=== PATIENT | female | born 1940 | race Caucasian/White ===

== ENCOUNTER → 2016-04-07 | Outpatient (CLI) | payer OTHER ==
--- NOTE | 2016-04-08 08:38 | MR ---
MRI of the Left Knee Clinical Indications: Left knee pain. Technique: Fat-suppressed, fast T2-weighted images were acquired axially, sagittally, and coronally. T1-weighted sagittal images were obtained. Findings: Medial compartment: There is diffuse articular cartilage loss throughout the medial compartment, grad e 2 severity. Associated free edge fraying and maceration of the medial meniscus of the posterior med ial corner, without linear tear. Lateral compartment: More severe grade 3 chondral loss involves the weightbearing and posterior aspec ts of the lateral tibial plateau, with subchondral bone marrow edema. There is mild chondral thinning diffusely throughout the lateral femoral condyle. Degenerative maceration and tear anterior horn lat eral meniscus, with undersurface irregularity and fraying. Disease extends into the anterior aspect o f the body. The posterior horn is intact with minimal free edge fraying. Patellofemoral compartment: Diffuse grade 2 chondral thinning medial patellar facet, without focal de fect. Anterior and posterior cruciate ligaments are intact. Medial and lateral collateral ligaments are int act. Distal quadriceps and patellar tendons are intact. There is a moderate knee joint effusion with a moderate size retropopliteal cyst, with evidence of ru pture and fluid tracking inferiorly along the medial head of the gastrocnemius. IMPRESSION: 1. Articular cartilage disease in all 3 compartments, most severe within the lateral compartment. Ass ociated degenerative tear anterior horn lateral meniscus. 2. Knee joint effusion with ruptured retropopliteal cyst.
== END ==
LOC: FIMAGING 15:00
PROVIDERS: ATTEND Physician Assistant
DX: M25.562 Pain in left knee (principal); M24.10 Other articular cartilage disorders, unspecified site; M23.242 Derangement of anterior horn of lateral meniscus due to old tear or injury, left knee; M25.462 Effusion, left knee

== ENCOUNTER → 2016-09-11 | Outpatient (CLI) | payer OTHER | LOC: FIMAGING 13:43 | PROVIDERS: ATTEND Orthopaedic Surgery Orthopaedic Surgery of the Spine | DX: M25.552 Pain in left hip (principal) ==

== ENCOUNTER 2016-09-13 08:15 | Inpatient (IN) | payer OTHER ==
[2016-12-11] MEDS ORDERED: ROPIVACAINE 0.2% 80 MG, EPINEPHrine 0.2 MG, KETOROLAC TROMETHAMINE 30 MG in BAG 0 ML IU ONE (06:00)
[2016-12-11] MEDS ORDERED: TRANEXAMIC ACID 3,000 MG in NS 50 ML IRR ONE (06:00)
[2016-12-11] MEDS ORDERED: DEXAMETHASONE 4 MG/ML VIAL IVP ONE (11:38)
[2016-12-11] MEDS ORDERED: ACETAMINOPHEN 325 MG TAB PO ONE (11:38)
[2016-12-11] MEDS ORDERED: FAMOTIDINE 20 MG TAB PO ONE (11:38)
[2016-12-11] MEDS ORDERED: ceFAZolin 2 GM/DEXTROSE 100 ML IV ONE (11:38)
[2016-12-11] MEDS ORDERED: LR 1,000 ML IV ONE (11:52)
[2016-12-11] MEDS ORDERED: TRANEXAMIC ACID 3,000 MG/50 ML BAG IRR ONE (12:28)
[2016-12-11] MEDS ORDERED: VANCOMYCIN 1 GM VIAL ONE (12:29)
[2016-12-11] MEDS ORDERED: MIDAZOLAM 2 MG/2 ML VIAL IVP ONE (13:41)
--- NOTE | 2016-12-11 13:41 | PDANEPAE ---
ANE History of Present Illness L TKA ANE Past Medical History - Cardiovascular History Hx Hypertension: No Hx Arrhythmias: No Hx Chest Pain: No Hx Coronary Artery / Peripheral Vascular Disease: No Hx CHF / Valvular Disease: No Hx Palpitations: No - Pulmonary History Hx COPD: No Hx Asthma/Reactive Airway Disease: No Hx Recent Upper Respiratory Infection: No Hx Sleep Apnea: No Sleep Apnea Screening Result - Last Documented: Negative Pulmonary History Comment: CHILDHOOD ASTHMA - Neurologic History Hx Cerebrovascular Accident: No Hx Seizures: No Hx Dementia: No - Endocrine History Hx Diabetes: No Hypothyroid: Yes Endocrine History Comment: HYPOTHYROID - Renal History Hx Renal Disorders: No Renal History Comment: URGENCY - Liver History Hx Hepatic Disorders: No - Neurological & Psychiatric Hx Hx Neurological and Psychiatric Disorders: Yes Neurological / Psychiatric History Comment: ADDj, depression. 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 COLITIS - Other Health History Other Health History: DDD - Chronic Pain History Chronic Pain: Yes (LOW BACK AND LT KNEE) - Surgical History Prior Surgeries: COLECTOMY ANE Review of Systems Review of Systems: - Exercise capacity METS (RN): 5 METS ANE Patient History - Allergies Allergies/Adverse Reactions: morphine Allergy (Verified 10/31/16 11:34) Itching - Home Medications Home Medications: Acetaminophen [Tylenol 325mg (*)] 650 mg PO Q4-6PRN PRN 10/31/16 [Last Taken 12/01] Divalproex ER [Depakote ER 250 MG (*)] 250 mg PO HS 10/31/16 [Last Taken 23:00] Levothyroxine [Synthroid 125 mcg (*)] 62.5 mcg PO DAILY06 10/31/16 [Last Taken 11/27/16 06:30] Polyethylene Glycol 3350 [Miralax 17 gm (*)] 17 gm PO DAILY 10/31/16 [Last Taken 11/25/16] buPROPion XL [Wellbutrin Xl] 300 mg PO DAILY 10/31/16 [Last Taken 11/27/16 06:30 ] traMADol [Ultram 50 mg (*)] 50 mg PO QID PRN 10/31/16 [Last Taken 11/24/16] traZODone [traZODONE 50MG (*)] 100 - 150 mg PO HS PRN 10/31/16 [Last Taken 2 Weeks Ago ~11/13/16] - NPO status NPO Since - Liquids (Date): 12/11/16 NPO Since - Liquids (Time): 10:00 NPO Since - Solids (Date): 12/10/16 NPO Since - Solids (Time): 21:00 - Smoking Hx Smoking Status: Never smoked - Family Anes Hx Family Hx Anesthesia Complications: NEG ANE Labs/Vital Signs - Vital Signs Blood Pressure: 120/75 Heart Rate: 72 Respiratory Rate: 18 O2 Sat (%): 95 Height: 171.45 cm Weight: 61.235 kg ANE Physical Exam - Airway Neck exam: FROM Mallampati Score: Class 1 Mouth exam: normal dental/mouth exam - Pulmonary Pulmonary: clear to auscultation - Cardiovascular Cardiovascular: regular rate and rhythym - ASA Status ASA Status: III ANE Anesthesia Plan Anesthesia Plan: spinal Regional Anesthesia: adductor canal FNB
[2016-12-11] MEDS ORDERED: MIDAZOLAM 2 MG/2 ML VIAL ONE (13:42)
[2016-12-11] MEDS ORDERED: fentaNYL 100 MCG/2 ML INJ ONE (13:44)
[2016-12-11] MEDS ORDERED: PROPOFOL 200 MG/20 ML VIAL ONE ×2 (13:45→14:43)
[2016-12-11] MEDS ORDERED: POLYETHYLENE GLYCOL 3350 17 GM PKT PO PRN (14:19)
[2016-12-11] MEDS ORDERED: diphenhydrAMINE 25 MG CAP PO PRN (14:19)
[2016-12-11] MEDS ORDERED: PROMETHAZINE HCL 25 MG/ML INJ IVP PRN (14:19)
[2016-12-11] MEDS ORDERED: ONDANSETRON 4 MG/2 ML VIAL IVP PRN (14:19)
[2016-12-11] MEDS ORDERED: LACTULOSE 20 GM/30 ML UDCUP PO PRN (14:19)
[2016-12-11] MEDS ORDERED: MAGNESIUM HYDROXIDE 30 ML UDCUP PO PRN (14:19)
[2016-12-11] MEDS ORDERED: PROMETHAZINE HCL 25 MG SUPPR PR PRN (14:19)
[2016-12-11] MEDS ORDERED: TEMAZEPAM 15 MG CAP PO PRN (14:19)
[2016-12-11] MEDS ORDERED: ONDANSETRON DISINTEGRATING 4 MG TAB PO PRN (14:19)
[2016-12-11] MEDS ORDERED: METOCLOPRAMIDE 10 MG/2 ML VIAL IVP PRN (14:19)
[2016-12-11] MEDS ORDERED: DIPHENOXYLATE/ATROPINE LOMOTIL 1 TAB PO PRN (14:19)
[2016-12-11] MEDS ORDERED: BISACODYL 10 MG SUPP PR PRN (14:19)
[2016-12-11] MEDS ORDERED: LR 1,000 ML IV SCH (14:30)
[2016-12-11] MEDS ORDERED: ROPIVACAINE HCL 150 MG/30 ML INJ ONE (14:43)
[2016-12-11] MEDS ORDERED: ONDANSETRON 4 MG/2 ML VIAL ONE (14:59)
--- NOTE | 2016-12-11 15:31 | POSTOPPROG ---
Post Op Note Date of Operation: 12/11/16 Surgeon: Ana M Newby Air Brush Decorator: Lucy Newby Anesthesiologist: Mathieu Anesthesia: Spinal Pre-op Diagnosis: L knee djd Post-op Diagnosis: same Indication: pain Procedure: L TKA Findings: DJD knee Inf/Abcess present in the surg proc area at time of surgery?: No EBL: 50-100
[2016-12-11] MEDS ORDERED: fentaNYL 100 MCG/2 ML INJ IVP PRN (15:39)
[2016-12-11] MEDS ORDERED: NALOXONE HCL 0.4 MG/ML INJ IVP PRN (15:39)
--- NOTE | 2016-12-11 16:13 | POSTANESTH ---
Post Anesthetic Evaluation Cardiovascular Status: Normal, Stable Respiratory Status: Normal, Stable Level of Consciousness/Mental Status: Can Participate in Eval Pain Control: Adequate, Prn Tx Ordered Nausea/Vomiting Control: Adequate, Prn Tx Ordered Complications Possibly Related to Anesthesia: None Noted
[2016-12-11] MEDS: oxyCODONE IR 5 MG TAB PO PRN ×2 (20:21→23:03)
[2016-12-11] MEDS: SENNOSIDES/DOCUSATE SODIUM TAB PO SCH (20:23)
[2016-12-11] MEDS: ACETAMINOPHEN 325 MG TAB PO SCH ×2 (20:23→23:02)
[2016-12-11] MEDS: ASPIRIN 325 MG TAB PO SCH (20:24)
[2016-12-11] MEDS: DIVALPROEX ER 250 MG TAB PO SCH (20:24)
[2016-12-11] MEDS: FAMOTIDINE 20 MG TAB PO SCH (20:25)
[2016-12-11] MEDS: traZODone 50 MG TAB PO PRN (22:14)
[2016-12-11] MEDS: ceFAZolin 2 GM/DEXTROSE 100 ML IV SCH (22:15)
[2016-12-11] MEDS: traMADol 50 MG TAB PO PRN (22:19)
[2016-12-12] MEDS: oxyCODONE IR 5 MG TAB PO PRN ×9 (01:56→23:54)
[2016-12-12] MEDS ORDERED: FLU VACC QS 2017-18 (3YR+)/PF 0.5 ML SYR (FLUARIX QUAD) IM ONE (04:35)
[2016-12-12] MEDS: ceFAZolin 2 GM/DEXTROSE 100 ML IV SCH (04:50)
[2016-12-12] MEDS: ACETAMINOPHEN 325 MG TAB PO SCH ×4 (04:50→23:53)
[2016-12-12] MEDS: LEVOTHYROXINE 125 MCG TAB PO SCH (04:52)
[2016-12-12 05:01] LABS: HEMATOCRIT 29.4 % (38.0-47.0); HEMOGLOBIN 10.1 g/dL (12.6-16.3)
--- NOTE | 2016-12-12 05:12 | GOP ---
[f rep st] OPERATIVE REPORT DATE OF OPERATION: 12/11/2016 SURGEON: Calvin Newby MD BULK MAIL CLERK: Lucy Newby PA-C ANESTHESIA: Spinal. PREOPERATIVE DIAGNOSIS: Left knee osteoarthritis. POSTOPERATIVE DIAGNOSIS: Left knee osteoarthritis. PROCEDURE PERFORMED: Left total knee arthroplasty. FINDINGS/PATHOLOGY: Severe lateral and patellofemoral osteoarthritis. ESTIMATED BLOOD LOSS: 30 cc. INDICATIONS: This is a 76-year-old female with severe and progressive pain and deformity of the left knee unresponsive to conservative care. Risks and benefits of the surgical intervention were explained in detail. DESCRIPTION OF PROCEDURE: The patient was brought to the operative room and placed on the table in the supine position. Spinal anesthesia was induced without difficulty. A pneumatic tourniquet was applied about the left proximal thigh, and the leg was prepped and draped in a sterile fashion. The leg andrade was applied. After exsanguination by elevation the tourniquet was inflated to 250 mm of mercury. Incision was made anterior medial from the tibial tuberosity to a point 2 cm proximal to the superior pole of the patella. Medial parapatellar arthrotomy was carried out from the superior pole of the patella and posteriorly in line with the fibers of the Type II VMO. The medial collateral ligament was elevated and the infrapatellar fat pad was resected. The patella was everted and the articular surface was excised. A 35 mm patellar button was placed. The distal femoral guide hole was drilled and the 6- degree alignment valentina was placed. A 10 mm distal femoral cut was made without difficulty. Attention was turned to the tibia and a standard 9 mm cut based on the lateral tibial condyle was performed. The tibial articular surface was excised without difficulty. Attention was turned back to the femur and a size 5 Triathlon femoral cutting block was positioned. Anterior, posterior, and chamfer cuts were made, followed by the intercondylar box cut. The knee was extended and the remnants of the medial and lateral meniscus were excised. The posterior capsule was injected with ropivacaine, epinephrine and Toradol. A size 5 MIS mini keel tibial tray was positioned. Trial reduction was then carried out. There was excellent range of motion, alignment, and stability using the 9 mm polyethylene. All trials were then removed. The joint was thoroughly irrigated and carefully dried. Two packages of cement and 2 grams of vancomycin were mixed in the vacuum mixer and placed on the fixation surfaces of all surfaces of the components. The components were implanted and all excess cement was thoroughly removed. The permanent 11 mm polyethylene X3 was placed without difficulty. The tourniquet was deflated and all bleeders were coagulated. The wound was thoroughly irrigated and closed using interrupted sutures of 2-0 Vicryl for the joint capsule. The subcu was closed with 3-0 Vicryl and the skin with 4-0 Monocryl. Dermabond and Steri-Strips were applied followed by a compressive dressing. The patient was then moved from the operating room to the recovery room in good condition, having tolerated the procedure well. /[id number]/MODL MTDD
[2016-12-12] MEDS: traMADol 50 MG TAB PO PRN ×3 (06:02→23:54)
[2016-12-12] MEDS: CYCLOBENZAPRINE 10 MG TAB PO PRN ×2 (06:05→18:14)
--- NOTE | 2016-12-12 09:40 | SOAPPROG ---
SOP[facility]AM Progress Note Assessment/Plan: Assessment: Elizabeth is doing well today POD 1 s/p L TKA 1) pain management: pain is well controlled on oral pain meds 2) VTE ppx: recommend aspirin daily for 3 weeks and continue SCDs and BALWINDER hose 3) Anemia: level expected initially postop, asymptomatic, continue to monitor for symptoms 4) D/c planning: d/c to home tomorrow pending release from PT. Patient may benefit from home health assistance. Appreciate case management's assistance in coordinating. 5)postop urinary retention: straight cath'd yesterday, resolved today. Plan: 12/12/16 09:45 12/12/16 09:46 Subjective: Elizabeth is doing well today, denies SOB, chest pain and N/v. Objective: Vital Signs Temp Pulse Resp BP Pulse Ox 36.1 C 64 14 116/67 96 12/12/16 07:50 12/12/16 07:50 12/12/16 07:50 12/12/16 07:50 12/12/16 07:50 Laboratory Results 12/12/16 04:46 12/11/16 12/12/16 12/13/16 05:59 05:59 05:59 Intake Total 3099 Output Total 780 Balance 2319 LLE: incision dressing is clean and dry, NVI, +pf/df ICD10 Worksheet Patient Problems: Problems Problem Status Onset Primary localized osteoarthritis of left knee Acute
[2016-12-12] MEDS: ASPIRIN 325 MG TAB PO SCH (11:51)
[2016-12-12] MEDS: FAMOTIDINE 20 MG TAB PO SCH ×2 (13:56→21:21)
[2016-12-12] MEDS: SENNOSIDES/DOCUSATE SODIUM TAB PO SCH ×2 (13:56→21:21)
[2016-12-12] MEDS: POLYETHYLENE GLYCOL 3350 17 GM PKT PO SCH (13:56)
[2016-12-12] MEDS: buPROPion XL 150 MG TAB PO SCH (13:56)
--- NOTE | 2016-12-12 14:10 | GDS ---
[f rep st] DISCHARGE SUMMARY ADMISSION DIAGNOSIS: Left knee osteoarthritis. DISCHARGE DIAGNOSIS: Left knee osteoarthritis. PROCEDURE: Left total knee arthroplasty. VTE PROPHYLAXIS: Aspirin recommended 3 weeks daily. BRIEF DESCRIPTION OF HOSPITAL STAY: Patient was admitted for an elective joint arthroplasty. The pa tient tolerated the procedure well and has passed physical therapy. The patient was given appropriat e antibiotic prophylaxis and venous thromboembolism prophylaxis. The patient's pain was well control led on oral pain medication, patient was holding down food, and had urinated. Decision was made to d ischarge the patient. The patient was given post-operative prescriptions pre-operatively. PLAN: Please follow up as scheduled at Dr. Newby's office in 3 weeks. /[id number]/MODL
[2016-12-12 15:57] VITALS: RESP 16
--- NOTE | 2016-12-12 16:20 | ASMTCMCOM ---
CM Note CM Note Notes: OT clears pt for home, PT rec HHC. Pt and partner Bill agreeable to HHC, referral sent to [facility] for review. CM to follow. Date Signed: 12/12/2016 04:19 PM Electronically Signed By:JANETTE Love
[2016-12-12] MEDS: DIVALPROEX ER 250 MG TAB PO SCH (21:20)
[2016-12-12] MEDS: traZODone 50 MG TAB PO PRN (21:22)
[2016-12-12] MEDS ORDERED: HYDROmorphONE/DILAUDID 6 MG/30 ML PCA IV PRN (22:01)
[2016-12-12] MEDS ORDERED: NALOXONE HCL 0.4 MG/ML INJ IVP PRN (22:01)
[2016-12-13] MEDS: CYCLOBENZAPRINE 10 MG TAB PO PRN (02:07)
[2016-12-13] MEDS: oxyCODONE IR 5 MG TAB PO PRN ×4 (02:59→13:21)
[2016-12-13 04:49] LABS: HEMATOCRIT 31.4 % (38.0-47.0); HEMOGLOBIN 10.5 g/dL (12.6-16.3)
[2016-12-13] MEDS: ACETAMINOPHEN 325 MG TAB PO SCH ×2 (05:26→11:20)
[2016-12-13] MEDS: traMADol 50 MG TAB PO PRN (05:27)
[2016-12-13] MEDS: LEVOTHYROXINE 125 MCG TAB PO SCH (05:27)
[2016-12-13 07:54] VITALS: BP 147/63; PULSE 74; TEMP 97.6; O2SAT 100
[2016-12-13] MEDS: ASPIRIN 325 MG TAB PO SCH (09:37)
[2016-12-13] MEDS: FAMOTIDINE 20 MG TAB PO SCH (09:38)
[2016-12-13] MEDS: buPROPion XL 150 MG TAB PO SCH (09:39)
[2016-12-13] MEDS: SENNOSIDES/DOCUSATE SODIUM TAB PO SCH (09:40)
[2016-12-13] MEDS: POLYETHYLENE GLYCOL 3350 17 GM PKT PO SCH (09:40)
--- NOTE | 2016-12-13 14:00 | SOAPPROG ---
SOAP Progress Note Assessment/Plan: Assessment: Elizabeth is doing well today POD 2 s/p L TKA 1) pain management: pain is well controlled on oral pain meds 2) VTE ppx: recommend aspirin daily for 3 weeks and continue SCDs and BALWINDER hose 3) Anemia: level expected initially postop, asymptomatic, continue to monitor for symptoms 4) D/c planning: d/c to home tomorrow pending release from PT. Patient may benefit from home health assistance. Appreciate case management's assistance in coordinating. 5)postop urinary retention: straight cath'd yesterday, resolve. 6) muscle spasms: flexeril alleviates it. will send script via [facility]'s EMR seystem Plan: 12/12/16 09:45 12/12/16 09:46 12/13/16 13:58 Subjective: Elizabeth is doing well. flexeril alleviates spasms Objective: Vital Signs Temp Pulse Resp BP Pulse Ox 36.4 C 74 16 147/63 H 100 12/13/16 07:53 12/13/16 07:53 12/13/16 07:53 12/13/16 07:53 12/13/16 07:53 Laboratory Results 12/13/16 04:27 12/12/16 12/13/16 12/14/16 05:59 05:59 05:59 Intake Total 3099 350 Output Total 780 900 Balance 2319 -550 LLE; incision dressing is clean and dry ICD10 Worksheet Patient Problems: Problems Problem Status Onset Primary localized osteoarthritis of left knee Acute
--- NOTE | 2016-12-13 14:02 | PDFACE2FAC ---
Face to Face Encounter 1. I certify that this patient is under my care and that I, or a nurse practitioner or physician's pastrycook's assistant working with me, had a [id number] encounter that meets the physician xmuc-ls-exes encounter requirements with this patient on 12/13/16. 2. I certify that based on my findings, the following services are medically necessary home health services: [X Nursing] [X Physical Therapy] [ Speech-Language Pathology] 3. The medical condition and clinical findings that support the need for specialized skills, knowledge and judgement of the above services are: [s/p TKA, increase in pain, inable to drive herself, must use FWW] 4. I certify this patient is homebound* because [the patient's condition restricts their ability to leave their home except with the assistance of another individual or the aid of a supportive device.] ___postop TKA, must use FWW and on new narcotics for postop pain I certify that this patient is confined to his/her home and needs intermittent custodial care, physical and/or speech therapy. This patient is under my care and I have authorized home health services. * Homebound is defined by Medicare as follows: absences from home require considerable and tacking effort and or for medical reasons or jehovah's witness services or are infrequent or of short duration when for other reasons*.
--- NOTE | 2016-12-13 14:04 | PDIAF ---
- Diagnosis Diagnosis: s/p TKA Code Status: Full Code - Medication Management Discharge Medications: Medications to Continue on Transfer RX: Acetaminophen [Tylenol 325mg (*)] 650 mg PO Q4-6PRN PRN 10/31/16 [Last Taken 11/23/16] RX: Divalproex ER [Depakote ER 250 MG (*)] 250 mg PO HS 10/31/16 [Last Taken 03/02 23:00] RX: Levothyroxine [Synthroid 125 mcg (*)] 62.5 mcg PO DAILY06 10/31/16 [Last Taken 11/27/16 06:30] RX: Polyethylene Glycol 3350 [Miralax 17 gm (*)] 17 gm PO DAILY 10/31/16 [Last Taken 11/25/16] RX: buPROPion XL [Wellbutrin 150mg XL] 300 mg PO DAILY 10/31/16 [Last Taken 06:30] RX: traMADol [Ultram 50 mg (*)] 50 mg PO QID PRN 10/31/16 [Last Taken 11/24/16] RX: traZODone [traZODONE 50MG (*)] 100 - 150 mg PO HS PRN 10/31/16 [Last Taken 2 Weeks Ago ~11/13/16] RX: Acetaminophen [Tylenol 325mg (*)] 650 mg PO Q6HRS tab 12/12/16 [Last Taken Unknown] RX: Aspirin [Aspirin 325 mg (*)] 325 mg PO DAILY tab 12/12/16 [Last Taken Unknown] RX: Sennosides/Docusate Sodium [Senokot-S] 1 - 2 tab PO BID tab 12/12/16 [Last Taken Unknown] RX: celeCOXIB [Celebrex (*)] 200 mg PO DAILY cap 12/12/16 [Last Taken Unknown] RX: oxyCODONE IR [Oxycodone Ir (*)] 5 - 10 mg PO Q3HRS PRN tab 12/12/16 [Last Taken Unknown] Discharge Medications: Refer to the Discharge Home Medication list for PRN reason. - Orders Services needed: Home Care, Registered Nurse, Certified Tape Transferrer, Physical Therapy Home Care Face to Face: I certify that this patient was under my care and that I had the required [id number] encounter meeting the encounter requirements on the discharge day. My findings support the fact that the patient is homebound as defined in Home Care Face to Face Continued: CMS Chapter 7 Medicare Benefits Manual 30.1.1 , The condition of the patient is such that there exists a normal inability to leave home and consequently, leaving home would require a considerable and taxing effort. Diet Recommendation: no restrictions on diet Diet Texture: Regular Texture Diet Vinnie Stockings Discontinue Date: daytime x 2 weeks Wound Care Instructions: remove incision dressing 14days from surgery. cover for showers. - Follow Up Care Current Providers and Referrals: José Barnes PA [Primary Care Provider] -
--- NOTE | 2016-12-13 16:17 | ASDISCHSUM ---
Discharge Information Plan Status:Home with Home Health Medically Cleared to Leave: Discharge Date:12/13/2016 03:50 PM CM D/C Disposition:Home Health Service [facility] D/C Disposition:[id number] Projected Discharge Date:12/13/2016 11:00 AM Transportation at D/C: Discharge Delay Reason: Follow-Up Date:12/13/2016 11:00 AM Discharge Slot: Final Diagnosis: Placement Information Referral Type:*Home Health Care Services Referral ID:[id number] Provider Name:[facility] [place] Address 1:[address] Phone Number: Address 2: Fax Number: City:[place] Selection Factors: State:[place] Patient Contact Information Contact Name:DIMITRI Relationship:Daughter Address: Work Phone: City: [facility] Phone: [facility] Code: Email: Financial Information Financial Class:Medicare Advantage Plans Primary Plan Desc:[facility] ADVANTAGE PLAN Primary Plan Number:[id number] Secondary Plan Desc: Secondary Plan Number: Assessment Information [facility] CM Progress Note CM Note CM Note Notes: OT clears pt for home, PT rec HHC. Pt and partner Bill agreeable to HHC, referral sent to [facility] for review. CM to follow. Date Signed: 12/12/2016 04:19 PM Electronically Signed By:JANETTE Love [facility] CM Progress Note CM Note CM Note Notes: Pt medically stable for d/c w [facility] and family support. Orders sent. Date Signed: 12/13/2016 04:15 PM Electronically Signed By:JANETTE Love Intervention Information
== END 2016-12-13 15:50 | disposition home health service (06) | DRG 470 ==
LOC: F3N 12-11 10:57
PROVIDERS: ADMIT Orthopaedic Surgery; ATTEND Orthopaedic Surgery
PROC: 0SRD0J9 Replacement of Left Knee Joint with Synthetic Substitute, Cemented, Open Approach (ICD-10-PCS; principal; 2016-12-11 13:15)
DX: M17.12 Unilateral primary osteoarthritis, left knee (principal); R33.9 Retention of urine, unspecified; M62.838 Other muscle spasm
CPT/HCPCS: 97110-GP; 97116-GP; 97161-GP; 97165-GO; C1713; G0008; G8978-GP-CK; G8979-GP-CI; G8987-GO-CI; G8988-GO-CI; G8989-GO-CI; J0171; J0690; J1100; J1885; J2250; J2405; J2704; J2795; J3010; J3370

== ENCOUNTER → 2016-09-26 | Outpatient (CLI) | payer OTHER | LOC: FIMAGING 09:25 | PROVIDERS: ATTEND Physician Assistant | DX: Z13.820 Encounter for screening for osteoporosis (principal); M85.80 Other specified disorders of bone density and structure, unspecified site; Z82.62 Family history of osteoporosis; Z78.0 Asymptomatic menopausal state ==

== ENCOUNTER → 2016-10-30 | Outpatient (CLI) | payer OTHER | LOC: BMCIMAGING 09:19 | PROVIDERS: ATTEND Physician Assistant | DX: Z12.31 Encounter for screening mammogram for malignant neoplasm of breast (principal) | CPT/HCPCS: G0202 ==

== ENCOUNTER → 2016-11-05 | Outpatient (CLI) | payer OTHER | LOC: CIMAGING 10:36 | PROVIDERS: ATTEND Neurological Surgery | DX: M48.06 Spinal stenosis, lumbar region (principal); M43.16 Spondylolisthesis, lumbar region; M51.36 Other intervertebral disc degeneration, lumbar region ==

== ENCOUNTER → 2016-11-27 | Day surgery (SDC) | payer OTHER ==
[2016-11-15 13:04] LABS: HIPAA RELEASE SIGNED SIGNED
[2016-11-15 13:05] LABS: % IMMATURE GRANULYOCYTES 0.2 % (0.0-1.1); ABSOLUTE IMMATURE GRANULOCYTES 0.01 10^3/uL (0.00-0.10); ADD DIFF? NO; ADD MORPH? NO; ADD SCAN? NO; ATYPICAL LYMPHOCYTE FLAG 10 (0-99); FRAGMENT RBC FLAG 0 (0-99); HEMATOCRIT 38.7 % (38.0-47.0); LEFT SHIFT FLG 0 (0-99); LIPEMIA HEMOLYSIS FLAG 80 (0-99); MEAN CELL HEMOGLOBIN 31.4 pg (27.9-34.1); MEAN CELL HEMOGLOBIN CONCENTR. 33.6 g/dL (32.4-36.7); MEAN CELL VOLUME 93.5 fL (81.5-99.8); MEAN PLATELET VOLUME 9.1 fL (8.7-11.7); PLATELET CLUMPS FLAG 0 (0-99); PLATELET COUNT 226 10^3/uL (150-400); RED BLOOD CELL COUNT 4.14 10^6/uL (4.18-5.33); RED CELL DISTRIBUTION WIDTH 12.5 % (11.5-15.2)
[~2016-11-27] MED LIST: ACETAMINOPHEN 325 MG TAB PO ONE; DEXAMETHASONE 4 MG/ML VIAL IVP ONE; FAMOTIDINE 20 MG TAB PO ONE; LIDOCAINE 1% 2 ML INJ ID PRN; LR 1,000 ML IV ONE; ROPIVACAINE 0.2% 80 MG, EPINEPHrine 0.2 MG, KETOROLAC TROMETHAMINE 30 MG in BAG 0 ML IU ONE; TRANEXAMIC ACID 3,000 MG in NS 50 ML IRR ONE; TRANEXAMIC ACID 3,000 MG/50 ML BAG IRR ONE; VANCOMYCIN 1 GM VIAL ONE; ceFAZolin 2 GM/DEXTROSE 100 ML IV ONE
--- NOTE | 2016-11-27 07:17 | PDHPUP ---
History & Physical Update H&P update statement: This history and physical update is based on an assessment of the patient which was completed after admission or registration (within 24 hours), but prior to the surgery/procedure. H&P update: H&P reviewed & patient examined, no change in patient's condition since H&P completed
[2016-11-27 07:54] VITALS: BP 155/82; PULSE 68; RESP 16; TEMP 97.9; O2SAT 96
--- NOTE | 2016-11-27 08:25 | PDHPUP ---
History & Physical Update H&P update statement: This history and physical update is based on an assessment of the patient which was completed after admission or registration (within 24 hours), but prior to the surgery/procedure. H&P changes: Pt informed doc of a cut she sustained while cutting her toenails. laceration is open on 4th toe of operative leg. we will cancel surgery and reschedule when healed.
== END | disposition home or self-care (01) ==
LOC: F3N 07:06 → FSGY 07:06 → UNDOADMIN 07:06 → EDSTATUS 07:15
PROVIDERS: ATTEND Orthopaedic Surgery
DX: M17.12 Unilateral primary osteoarthritis, left knee (principal); Z53.9 Procedure and treatment not carried out, unspecified reason
CPT/HCPCS: J0171; J0690; J1100; J1885; J2795; J3370

== ENCOUNTER 2016-12-17 19:41 | Emergency (ER) | payer OTHER ==
[2016-12-17 19:47] VITALS: TEMP 99.7
--- NOTE | 2016-12-17 21:07 | EDPHY ---
H & P Stated Complaint: left knee pain and tenderness Time Seen by Provider: 12/17/16 21:06 - Personal History Current Tetanus/Diphtheria Vaccine: Yes Current Tetanus Diphtheria and Acellular Pertussis (TDAP): Yes - Medical/Surgical History Hx Asthma: No Hx Chronic Respiratory Disease: No Hx Diabetes: No Hx Cardiac Disease: No Hx Renal Disease: No Hx Cirrhosis: No Hx Alcoholism: No Hx HIV/AIDS: No Hx Splenectomy or Spleen Trauma: No Other PMH: Recurrent diverticulitis, spondylolisthesis of spine, anxiety, depression, colon resection, left knee replacement - Social History Smoking Status: Never smoked Constitutional: Initial Vital Signs Temperature (C) 37.6 C 12/17/16 19:42 Heart Rate 100 12/17/16 19:42 Respiratory Rate 18 12/17/16 19:42 Blood Pressure 134/83 H 12/17/16 19:42 O2 Sat (%) 96 12/17/16 19:42 O2 Delivery Mode Room Air Allergies/Adverse Reactions: morphine Allergy (Verified 10/31/16 11:34) Itching Home Medications: Medication Instructions Recorded Acetaminophen [Tylenol 325mg (*)] 650 mg PO Q4-6PRN PRN 10/31/16 Divalproex ER [Depakote ER 250 MG 250 mg PO HS 10/31/16 (*)] Levothyroxine [Synthroid 125 mcg 62.5 mcg PO DAILY06 10/31/16 (*)] Polyethylene Glycol 3350 [Miralax 17 gm PO DAILY 10/31/16 17 gm (*)] buPROPion XL [Wellbutrin 150mg XL] 300 mg PO DAILY 10/31/16 traMADol [Ultram 50 mg (*)] 50 mg PO QID PRN 10/31/16 traZODone [traZODONE 50MG (*)] 100 - 150 mg PO HS PRN 10/31/16 Acetaminophen [Tylenol 325mg (*)] 650 mg PO Q6HRS tab 12/12/16 Aspirin [Aspirin 325 mg (*)] 325 mg PO DAILY tab 12/12/16 Sennosides/Docusate Sodium 1 - 2 tab PO BID tab 12/12/16 [Senokot-S] celeCOXIB [Celebrex (*)] 200 mg PO DAILY cap 12/12/16 oxyCODONE IR [Oxycodone Ir (*)] 5 - 10 mg PO Q3HRS PRN tab 12/12/16 fentaNYL 12.5 12/17/16 Medical Decision Making - Diagnostics Imaging Results: Imaging Impressions Extremity Venous Study 12/17/16 21:17 Impression: Negative. No deep venous thrombosis. Findings discussed with Emergency Department physician, Marcelino Boyle MD at 12/17/2016 22:23. Imaging: Discussed imaging studies w/ lithographed plate inspector Radiologist ED Course/Re-evaluation: CHIEF COMPLAINT: Leg pain and swelling HISTORY OF PRESENT ILLNESS: The patient is a 76 y/o female complaining of left knee pain 6 days after a total knee replacement. Today she's noticed increasing swelling, pain, and heat in her entire leg compared to previous days. She notes she did not wear her compression stockings last night. She denies fever, chest pain, shortness of breath, or other acute symptoms. She is taking multiple agents to control her chronic pain and acute knee pain including Tramadol, Oxycodone, and Tylenol. She is also taking 324mg Aspirin daily for clot prophylaxis since the surgery. REVIEW OF SYSTEMS: A 10 point review of systems was performed and is negative with the exception of the elements mentioned in the history of present illness. PHYSICAL EXAM: HR, BP, O2 Sat, RR. Temp noted General Appearance: Alert, well hydrated, appropriate, and non-toxic appearing. Head: Atraumatic without scalp tenderness or obvious injury Eyes: Pupils equal, round, reactive to light and accommodation, EOMI, no trauma , no injection. Nose: Atraumatic, no rhinorrhea, clear. Throat: Mucus membranes moist. Neck: Supple Respiratory: No retractions, no distress, no wheezes, and no accessory muscle use. Lungs are clear to auscultation bilaterally. Cardiovascular: Regular rate and rhythm, no murmurs, rubs, or gallops. Left dorsalis pedis and posterior tibial pulses intact. Good capillary refill all extremities. Gastrointestinal: Abdomen is soft, nontender, non-distended, no masses, no rebound, no guarding, no peritoneal signs. Musculoskeletal: Warmth and ecchymosis to medial left leg, edema and bandage over left knee, ecchymosis to entire left lower leg. Otherwise normal active ROM of all extremities, atraumatic. Neurological: Alert, appropriate, and interactive. Nonfocal neuro exam. Skin: No rashes, good turgor, no nodules on palpation. Past medical history: Chronic back pain Past surgical history: Total left knee replacement by Dr. Newby 12/09/16. Family history: noncontributory Social history: Daughter at bedside. PCP: CARINE Barnes DIAGNOSTICS/PROCEDURES/CRITICAL CARE TIME: Left leg US: no DVT DIFFERENTIAL DIAGNOSIS: The differential diagnosis for the patient's leg swelling included but was not limited to hypoalbuminemia, congestive heart failure, cor pulmonale, venous stasis, trauma, and DVT. MEDICAL DECISION MAKING: This is a 76 y/o female who is 6 days out from a total left knee replacement and presents today with worsening pain, swelling, and warmth of her entire left leg. She denies other acute symptoms. She has noticeable ecchymosis and swelling to her left leg, but no signs of cellulitis. Plan for US to rule out DVT. 2230: Reassessed patient and discussed imaging results. No DVT on US. No signs of infection on exam. She will be discharged with standard postoperative care instructions and return precautions. She is comfortable with this plan. Departure - Departure Disposition: Home, Routine, Self-Care Clinical Impression: Postoperative edema Condition: Good Instructions: Precautions after Total Joint Replacement Surgery (ED) Additional Instructions: Continue post-surgical care as directed by your orthopedist. Follow up with your orthopedist this week. Return to the ED for severe pain, chest pain, shortness of breath, fever, or other worsening of condition. Referrals: Jsoé Barnes PA [Primary Care Provider] - As per Instructions Ana M Newby MD [Medical Doctor] - As per Instructions Report Scribed for: Marcelino Boyle Report Scribed by: Becca Wilson Date of Report: 12/17/16 Time of Report: 21:19
[2016-12-17 22:51] VITALS: BP 154/82; PULSE 98; RESP 16; O2SAT 92
== END 2016-12-17 22:50 | disposition home or self-care (01) ==
DX: T84.89XA Other specified complication of internal orthopedic prosthetic devices, implants and grafts, initial encounter (principal); Z79.82 Long term (current) use of aspirin; Y82.8 Other medical devices associated with adverse incidents

== ENCOUNTER → 2018-01-21 | Outpatient (CLI) | payer OTHER | LOC: BMCIMAGING 14:35 | PROVIDERS: ATTEND Physician Assistant | DX: Z12.31 Encounter for screening mammogram for malignant neoplasm of breast (principal) ==

== ENCOUNTER → 2018-06-05 | Outpatient (CLI) | payer OTHER | LOC: FIMAGING 17:50 | PROVIDERS: ATTEND Physician Assistant | DX: R47.1 Dysarthria and anarthria (principal) | CPT/HCPCS: 70551-PN ==

== ENCOUNTER → 2018-08-18 | Outpatient (CLI) | payer OTHER | LOC: FIMAGING 16:37 ==